=== PATIENT | male | born 1965 | race Caucasian/White ===

== ENCOUNTER 2019-03-15 14:59 | Inpatient (IN) | payer OTHER ==
[~2019-03-15] VITALS: Ht 185.4 cm; Wt 109.6 kg
[2019-03-16 07:35] VITALS: BP 151/75
== END 2019-03-16 11:50 | disposition home or self-care (01) | DRG 310 ==
LOC: ED 16:54 → EDIP 16:55 → ED 17:22 → 5SO 18:15 → DCLOUNGE 03-16 11:45
PROVIDERS: ADMIT Internal Medicine; ATTEND Internal Medicine
DX: I44.2 Atrioventricular block, complete (principal); E78.5 Hyperlipidemia, unspecified; J45.909 Unspecified asthma, uncomplicated; I10 Essential (primary) hypertension; M25.511 Pain in right shoulder; Z79.899 Other long term (current) drug therapy; Z82.49 Family history of ischemic heart disease and other diseases of the circulatory system
CPT/HCPCS: 36415; 71045; 80048; 80053; 80061; 83735; 83880; 84443; 84484; 85025; 93005; 93306; 99285; G0378; J7030

== ENCOUNTER 2020-06-27 06:01 | Observation (INO) | payer OTHER ==
[~2020-06-27] VITALS: Ht 185.4 cm; Wt 107.0 kg
[~2020-06-27 06:01] MED LIST: MONT10TA6 PO; OXYC1TAB8 PO; SIMV5TAB14 PO
[2020-06-27] MEDS: SODIUM CHLORIDE 0.9% 1,000 ML IV SCH ×3 (06:30→22:30)
[2020-06-27] MEDS ORDERED: ASPI81TA45 PO (06:55)
[2020-06-27] MEDS ORDERED: AMLO-150 PO (06:55)
[2020-06-27] MEDS ORDERED: LOSA50TA14 PO (06:55)
[2020-06-27 06:56] VITALS: BP 151/82
[2020-06-27 07:16] LABS: BASOPHILS % (AUTO) 1 % (0-1); EOSINOPHILS % (AUTO) 2 % (1-7); LYMPHOCYTES % (AUTO) 30 % (22-44); MEAN CORPUSCULAR HEMOGLOBIN 31.1 pg (27.5-34.5); MEAN CORPUSCULAR HGB CONC 33.5 g/dL (33.2-36.2); MEAN PLATELET VOLUME 7.5 fL (7.4-10.4); MONOCYTES % (AUTO) 11 % (2-9); NEUTROPHILS % (AUTO) 57 % (42-75); PLATELET COUNT 189 x10^3/uL (130-400); RED BLOOD COUNT 4.86 x10^6/uL (4.38-5.82); RED CELL DISTRIBUTION WIDTH 13.4 % (9.4-14.8)
[2020-06-27] MEDS ORDERED: CEFAZOLIN PMX 1GM/50ML 50 ML ONE (07:25)
[2020-06-27] MEDS ORDERED: FENTANYL PF 100 MCG/2ML ONE (07:25)
[2020-06-27] MEDS ORDERED: MIDAZOLAM 1 MG/ML, 5ML ONE (07:25)
[2020-06-27] MEDS ORDERED: LIDOCAINE 2%, 20ML ONE (07:25)
[2020-06-27 07:26] LABS: ANION GAP 5 mmol/L (5-15); CHLORIDE 106 mmol/L (98-107); CREATININE 1.09 mg/dL (0.7-1.3); MD NO
[2020-06-27] MEDS ORDERED: CEFAZOLIN 1,000 MG ONE (07:26)
[2020-06-27] MEDS ORDERED: HOLD MEDICATION MC PRN (09:30)
[2020-06-27 10:48] VITALS: BP 148/93
[2020-06-27 13:42] VITALS: BP 139/85
[2020-06-27 15:07] VITALS: BP 149/93
[2020-06-27] MEDS: CEFAZOLIN PMX 1GM/50ML 50 ML IVPB SCH ×2 (16:17→23:01)
[2020-06-27] MEDS: ACETAMINOPHEN 325 MG TABLET PO PRN ×2 (16:18→20:18)
[2020-06-27] MEDS ORDERED: FLU VACC QS2020-21(6MOS UP)/PF 60MCG/0.5 ML SYR IM ONE (18:00)
[2020-06-27 19:03] VITALS: BP 164/99
[2020-06-27] MEDS: LOSARTAN 50MG TABLET PO SCH (20:19)
[2020-06-27] MEDS: SODIUM CHLORIDE FLUSH 10ML SYR IVF SCH (20:20)
[2020-06-27] MEDS ORDERED: AMLODIPINE 5 MG TABLET PO SCH (21:00)
[2020-06-27] MEDS ORDERED: SIMVASTATIN 10 MG TABLET PO SCH (21:00)
[2020-06-28 01:02] VITALS: BP 149/92
[2020-06-28] MEDS ORDERED: OXYcodone/APAP 7.5/325MG TABLET PO ONE (01:30)
[2020-06-28] MEDS: SODIUM CHLORIDE 0.9% 1,000 ML IV SCH (06:30)
[2020-06-28 06:43] VITALS: BP 147/94
[2020-06-28] MEDS: LOSARTAN 50MG TABLET PO SCH (08:36)
[2020-06-28] MEDS: SODIUM CHLORIDE FLUSH 10ML SYR IVF SCH (08:36)
[2020-06-28] MEDS ORDERED: MONTELUKAST 10 MG TABLET PO SCH (09:00)
[2020-06-28] MEDS ORDERED: AMLODIPINE 5 MG TABLET PO SCH (09:00)
[2020-06-28] MEDS ORDERED: ASPIRIN 81 MG TABLET EC PO SCH (09:00)
== END 2020-06-28 09:43 | disposition home or self-care (01) ==
LOC: CACL 06:01 → 5SO 09:14 → CACL 11:44 → DCLOUNGE 06-28 09:30
PROVIDERS: ADMIT Internal Medicine Cardiovascular Disease; ATTEND Internal Medicine Cardiovascular Disease
DX: I49.5 Sick sinus syndrome (principal); E78.5 Hyperlipidemia, unspecified; I10 Essential (primary) hypertension; Z79.82 Long term (current) use of aspirin; Z79.899 Other long term (current) drug therapy; Z23 Encounter for immunization; Z95.0 Presence of cardiac pacemaker
CPT/HCPCS: 33208; 36415; 71045; 71046; 80048; 85025; 90471; 90686; 96365; 96366; 99156; 99157; C1779; C1785; C1892; G0378; J0690; J2250; J3010; J3490

== ENCOUNTER → 2020-11-17 | Outpatient (CLI) | payer OTHER ==
[~2020-11-17] MED LIST changes: +AMLO-150 PO; +ASPI81TA45 PO; +LOSA50TA14 PO
== END | disposition home or self-care (01) ==
LOC: CFH 10:11
PROVIDERS: ATTEND Internal Medicine Cardiovascular Disease
DX: I08.8 Other rheumatic multiple valve diseases (principal); I10 Essential (primary) hypertension; E78.5 Hyperlipidemia, unspecified; I48.0 Paroxysmal atrial fibrillation
CPT/HCPCS: 93306